=== PATIENT | female | born 1985 | race Caucasian/White ===

== ENCOUNTER 2024-11-04 21:14 | Emergency (ER) | payer OTHER, SELFPAY ==
[2024-11-04 21:21] VITALS: BP 99/70
[2024-11-04 21:45] LABS: Urine Albumin Negative (Neg - Trace); Urine Bilirubin Negative (Negative); Urine Character Clear (Clear); Urine Glucose Negative (Negative); Urine Ketone Negative (Negative); Urine Leukocyte Negative (Negative); Urine Nitrite Negative (Negative); Urine Occult Blood 1+ (Negative); Urine Urobilinogen Negative (Neg - 1+)
[2024-11-04 21:46] LABS: % Eosinophils 2.1 % (0-6); % Immature Granulocytes 0.4 % (0-0.5); % Lymphocytes 37.8 % (20.5-51.1); % Monocytes 12.4 % (1.7-9.3); % Neutrophils 46.3 % (42.2-75.2); Absolute Basophils 0.1 10^3/uL (0-0.2); Absolute Eosinophils 0.1 10^3/uL (0-0.7); Absolute Monocytes 0.6 10^3/uL (0.1-0.6); Absolute Neutrophils 2.4 10^3/uL (1.4-6.5); Hematocrit 37.3 % (37.0-47.0); Hemoglobin 12.6 g/dL (12.0-16.0); Mean Corp Hgb Conc. 33.8 g/dL (33.0-37.0); Mean Corpuscular Hgb 30.4 pg (27.0-31.0); Mean Corpuscular Volume 90.1 fL (81.0-99.0); Mean Platelet Volume 8.1 fL (7.4-10.4); Nucleated Red Blood Cells % 0 %; Platelet Count 323 10^3/uL (130-400); Red Blood Cell Count 4.14 10^6/uL (4.20-5.40); Red Cell Dist. Width 12.2 % (11.5-14.5); Urine Color Straw; White Blood Cell Count 5.2 10^3/uL (4.8-10.8)
[2024-11-04 21:56] LABS: HCG, Serum Qualitative Screen Negative
[2024-11-04 22:00] LABS: ALT (SGPT) 70 U/L (0-35); AST (SGOT) 41 U/L (14-36); Albumin 4.8 g/dl (3.5-5.0); Alkaline Phosphatase 77 U/L (38-126); Blood Urea Nitrogen 5 mg/dl (7-17); Calcium 9.4 mg/dl (8.4-10.2); Carbon Dioxide 28 mmol/L (22-30); Chloride 103 mmol/L (98-107); Glucose 90 mg/dl (70-99); Potassium 4.3 mmol/L (3.5-5.1); Sodium 137 mmol/L (135-145); Total Bilirubin 0.3 mg/dl (0.2-1.3); Total Protein 7.3 g/dl (6.3-8.2); eGFR > 60.00
[2024-11-04 23:07] LABS: Urine Red Blood Cell 0-2 /HPF (0-2); Urine Squamous Cell 21-25 /LPF (Few); Urine White Cell 0-2 /HPF (0-5)
[2024-11-05 01:03] VITALS: BP 110/70
--- NOTE | 2024-11-05 03:16 | ED.GENMED ---
History of Present Illness
General
Chief Complaint: Urinary Symptoms
Source: patient
Exam Limitations: none
Time Seen by Provider: 11/05/24 03:14
Nursing documentation reviewed up to this point in time: agreed with
History of Present Illness
History of Present Illness:
This is a 39-year-old female with no past medical history who presents emergency department today with concerns of increased urinary frequency for the past 3 weeks. Patient reports that when she first started, she did not increase her water intake
and noticed that despite this, she would frequently run to the bathroom. Patient reports that she felt as if she had trouble emptying her bladder at times and would state that her bladder will become very full and this would cause her pain.
Patient states that she feels like she is holding urine for a longer time that is abnormal for her. She was seen by her primary care provider who performed a urinalysis which did not show any signs concerning for infection. She was started on
Macrobid however the culture came back negative and she subsequently stopped taking this. She denies any dysuria. Denies any hematuria. Denies any fevers or chills, abdominal pain. She only notes pain in the pelvis only when there is urine in
her bladder. She has not seen a urologist for this problem. Her last menstrual period ended 2 days ago. She is also concerned because she has a new sexual partner and states that she is concerned that he may have given her bacteria. She denies
any vaginal discharge. She did have testing done last week for GC chlamydia which was negative.
Past History
Past History
ED Past Medical History: None
ED Past Surgical History: None
Social History
Tobacco: Non-smoker
Alcohol: None
Review of Systems
Review of Systems
All Other Systems: ROS reviewed and negative except as documented in HPI and ROS
Phy Exam
Physical Exam
Physical Exam:
General: Patient is well appearing and in no acute distress; non-toxic
Skin: Warm and dry, no rashes or lesions
Head: Normocephalic, atraumatic
Eyes: Sclera non-icteric. EOMs intact.
Cardiac: Regular rate and rhythm, no murmurs
Peripheral Vascular: No lower extremity swelling or edema
Pulm: Normal respiratory effort, no wheezes, rales, or rhonchi
Abdomen: No abdominal tenderness to palpation, no palpable abdominal masses, no adenexal tenderness
Neuro: CN II-XII intact, no focal neurologic deficits.
Psychiatric: Appropriate mood and affect.
Course
Orders/Labs/Results
Orders:
Orders
11/04/24 21:25
Test Result ONCE
11/04/24 21:35
Complete Blood Count/With Diff Urgent
Comprehensive Metabolic Panel Urgent
HCG, Serum Qualitative Screen Urgent
Urinalysis Reflex To Culture Urgent
Date Specimen was Collected: 11/04/24
Time Specimen was Collected: 21:25
Urine Microscopic Reflex Cult Urgent
11/05/24 03:15
Bladder Scan- Treatment ONCE
11/05/24 03:52
US Pelvis W Transvag Combined Urgent
Comment:
Reason For Exam: pelvic pain
Abnormal Lab Results
11/04/24
21:35
RBC 4.14 L 10^6/uL
(4.20-5.40)
Monocytes % 12.4 H %
(1.7-9.3)
BUN 5 L mg/dl
(7-17)
AST 41 H U/L
(14-36)
ALT 70 H U/L
(0-35)
Ur Occult Blood Reflex 1+ A
(Negative)
11/04/24 21:35
11/04/24 21:35
Vital Signs
Initial and Last Documented VS:
Initial Vital Signs
Temp Pulse Resp BP Pulse Ox
97.8 F 70 16 99/70 98
11/04/24 21:21 11/04/24 21:21 11/04/24 21:21 11/04/24 21:21 11/04/24 21:21
Last Documented Vital Signs
Temp Pulse Resp BP Pulse Ox
97.8 F 66 18 111/72 99
11/04/24 21:21 11/05/24 06:18 11/05/24 06:18 11/05/24 06:18 11/05/24 06:18
MDM/Problems Addressed
Differential Diagnosis Includes:
ddx include UTI, STD, ovarian cyst, interstitial cystitis, overactive bladder, caffeine intake, kidney disease, diabetes, anxiety
MDM/Problems Addressed:
This is a 39-year-old female with no past medical history who presents emergency department today with concerns of increased urinary frequency for the past 3 weeks. Patient reports that when she first started, she did not increase her water intake
and noticed that despite this, she would frequently run to the bathroom. She has never had anything like this before. She saw her primary care provider who did urinalysis testing which was negative. Had negative GC/chlamydia. No evidence of urinary
retention on bladder scan. Patient pain free after she emptied her bladder. Patient had benign abdominal exam. She is very concerned she could have something wrong with her ovaries despite being asymptomatic at this time. We did obtain an US which
was positive for an ovarian cyst. No concern for intermittent torsion at this time. Explained to patient that this is unlikely to cause urinary frequency. Recommended follow up with urology and patient's OBGYN. Patient requesting a referral for a
new OBGYN. Referral provided. Patient stable for discharge.
*Critical Care Note
Total Time (30-74mins, 75-104mins- exclusive of procedures): Not Applicable
ED Attending Note
-
Portions of this chart may have been created with voice recognition software.� Occasional wrong word or��sound alike� substitutions may have occurred due to the inherent limitations of voice recognition software.
Discharge Plan
Departure
Patient Disposition: Home (Routine Discharge)
Date of Disposition: 11/05/24
Time of Disposition: 06:15
Patient with high blood pressure during this ER visit?: Yes
Condition: Good
Discharge Problem:
Ovarian cyst, Urinary frequency
Instructions: Pelvic pain - ED discharge instructions, BLOOD PRESSURE
Prescriptions:
No Action
diclofenac potassium 50 mg tablet
50 mg PO BID Qty: 20 0RF
methylprednisolone [Medrol (Leonard)] 4 mg tablets,dose pack
See Rx Instructions .ROUTE .COMPLEX Qty: 21 0RF
Rx Instructions:
orally per package directions
Referrals:
Harsh Taylor MD [Active] - Call in 1-3 days for appt
Gina Winchester MD [Active] - Call in 1-3 days for appt
Selene Funez PA-C [Family Provider] -
Activity Restrictions/Additional Instructions:
Your ultrasound demonstrated normal flow to both ovaries. Your ultrasound showed ovarian cyst which may be responsible for your pain but should not cause urinary frequency. Please follow-up with your MENTAL MEASUREMENTS TEACHER. We also provided you a referral for a
urologist.
PLEASE RETURN EMERGENCY DEPARTMENT TO DEVELOP FEVERS OR CHILLS, VAGINAL BLEEDING, VAGINAL DISCHARGE, INCREASING PAIN, CHEST PAIN OR SHORTNESS OF BREATH, DIZZINESS, LIGHTHEADEDNESS, OR ANY OTHER SIGNS OR SYMPTOMS WORRISOME TO YOU.
Interventions
Interventions:
*Risk Screen - Suicide Last Done: 11/05/24 03:21
*General Assessment Last Done: 11/05/24 03:21
*Neglect/Abuse Screening Last Done: 11/05/24 03:21
*ED- Fall Risk Assessment Last Done: 11/05/24 03:21
*ED COVID-19 Vaccine History Last Done: 11/05/24 03:21
*Nursing Disposition Last Done: 11/05/24 06:19
ED-Female Genitourinary Assessment Last Done: 11/05/24 03:21
Discharge Date and Time
Discharge Date/Time: 11/05/24 06:30
Print Language: BENGALI
[2024-11-05 03:38] VITALS: BP 96/64
[2024-11-05 04:00] VITALS: BP 97/68
[2024-11-05 06:18] VITALS: BP 111/72
== END 2024-11-05 06:30 | disposition home or self-care (01) ==
LOC: EMR 21:14
PROVIDERS: Student in an Organized Health Care Education/Training Program; EMERGENCY PHYSICIAN Emergency Medicine; FAMILY PHYSICIAN Physician Assistant Medical
DX: N83.201 Unspecified ovarian cyst, right side (principal); R35.0 Frequency of micturition
CPT/HCPCS: 99284; 76830; 76856; 80053; 81003; 81015; 84703; 85025

== ENCOUNTER 2024-11-08 06:23 | Emergency (ER) | payer OTHER, SELFPAY ==
[2024-11-08 06:25] VITALS: BP 128/75
--- NOTE | 2024-11-08 06:48 | ED.GENMED ---
Addendum entered and electronically signed by Michael Bojorquez PA-C 11/10/24 06:14:
Urine culture shows greater than 100,000 colony-forming units of gram-negative bacilli. Currently on antibiotics. Sensitivities pending
Original Note:
History of Present Illness
General
Chief Complaint: Urinary Symptoms
Source: patient and records
Exam Limitations: none
Time Seen by Provider: 11/08/24 06:36
Nursing documentation reviewed up to this point in time: agreed with
History of Present Illness
History of Present Illness:
39-year-old female with no reported chronic medical issues who presents to the emergency room for evaluation of abdominal pain. Patient reports onset of symptoms about a month ago and they have been generally worsening. She reports suprapubic pain
which does not radiate. No clear triggering or relieving factors noted. She denies any associated nausea, vomiting, diarrhea. She has had urinary symptoms�describes dysuria and increased frequency. She was seen in this emergency room 11/05/2024
with urinary symptoms and pain�at that time she was found to have an ovarian cyst on pelvic ultrasound. Her urinalysis was bland and she was recommended to follow-up with urology and MANAGER PART in regards to her urinary frequency. She says that she
saw a urologist and was told to take Azo. She says that she took it last night and began to have whole body aches, worsening suprapubic pain, severe dysuria and 'I started peeing blood.' She came to the emergency room for evaluation. Only
surgical history is prior . She says she is scheduled for an outpatient CT scan next week that was ordered by the urologist.
Past History
Past History
ED Past Medical History: None
ED Past Surgical History: None
Social History
Tobacco: Non-smoker
Alcohol: None
Review of Systems
Review of Systems
All Other Systems: ROS reviewed and negative except as documented in HPI and ROS
Constitutional: Denies fever or chills
Respiratory: Denies trouble breathing
Cardiac: Denies chest pain
ABD/GI: Reports abdominal pain; Denies nausea, vomiting or diarrhea
: Reports dysuria, frequency and bleeding; Denies flank pain
Musculoskeletal: Denies neck pain or back pain
Neurological: Denies headache
Phy Exam
Physical Exam
Physical Exam:
General: Awake, alert, crying and very anxious appearing
Head: Normocephalic, atraumatic
Eyes: Conjunctiva normal
Throat: Airway intact, handling secretions
Neck: Trachea midline, supple without meningismus
Lungs: Clear to auscultation bilaterally, no wheezing, rales, rhonchi
Heart: Tachycardia with regular rhythm, no murmurs, gallops, or rubs
Abd: Soft, non distended, mild suprapubic tenderness
: (Exam performed with female missile and missile checkout technician in room as epic willow analyst)--normal external genitalia, small amount of white discharge in the vaginal vault, normal-appearing cervix, no cervical motion tenderness
Back: No CVA tenderness
Neuro: No gross deficits
Skin: no rash in area of concern
Extremities: Warm and well-perfused
Scores
Heart Failure Risk
Heart Failure Risk Score: Not Applicable
Heart Score for Chest Pain Patients
STEMI patient?: Not applicable
Withdrawal Assessment of Alcohol
Withdrawal Assessment Completed?: Not applicable
Course
Orders/Labs/Results
Orders:
Orders
11/08/24 06:36
Test Result ONCE
11/08/24 06:40
HCG, Urine Qualitative Screen Urgent
Date Specimen was Collected: 11/08/24
Time Specimen was Collected: 06:38
Urinalysis Reflex To Culture Urgent
Date Specimen was Collected: 11/08/24
Time Specimen was Collected: 06:38
Urine Microscopic Reflex Cult Urgent
Urine Culture Urgent
SUMMER Source: U
Specimen Description:
Date Specimen was Collected: 11/08/24
Time Specimen was Collected: 06:38
11/08/24 06:46
Iohexol [Omnipaque] See Protocol PO NOW STA
11/08/24 06:47
CT Abd/pel (oral only)-DH Only Urgent
Comment:
Reason For Exam: suprapubic tenderness
Test Result ONCE
11/08/24 06:52
Ketorolac [Toradol] 15 mg IV NOW STA
Lorazepam [Ativan] 0.5 mg IV NOW STA
11/08/24 07:03
Complete Blood Count/With Diff Urgent
Comprehensive Metabolic Panel Urgent
HCG, Serum Qualitative Screen Urgent
11/08/24 09:10
CefTRIAXone [Rocephin] 1,000 mg IV NOW STA
Abnormal Lab Results
11/08/24 11/08/24
06:40 07:03
RBC 4.11 L 10^6/uL
(4.20-5.40)
Hct 36.9 L %
(37.0-47.0)
Abs Immat Gran (auto) 0.1 H 10^3/uL
(0-0.05)
Absolute Neuts (auto) 7.1 H 10^3/uL
(1.4-6.5)
Absolute Lymphs (auto) 1.0 L 10^3/uL
(1.2-3.4)
Absolute Monos (auto) 0.7 H 10^3/uL
(0.1-0.6)
Immature Gran % 0.6 H %
(0-0.5)
Neutrophils % 79.4 H %
(42.2-75.2)
Lymphocytes % 11.7 L %
(20.5-51.1)
BUN 3 L mg/dl
(7-17)
Glucose 105 H mg/dl
(70-99)
ALT 56 H U/L
(0-35)
Urine Ketones 1+ A
(Negative)
Ur Occult Blood Reflex 4+ A
(Negative)
Urine Nitrite (Reflex) Positive A
(Negative)
Leukocyte Esterase Rfl 3+ A
(Negative)
Urine RBC 90-100 A /HPF
(0-2)
Urine WBC (Reflex) 70-80 A /HPF
(0-5)
Urine Bacteria (Reflex) Moderate A
(Negative)
Urine Albumin (Reflex) 4+ A
(Neg - Trace)
11/08/24 07:03
11/08/24 07:03
Vital Signs
Initial and Last Documented VS:
Initial Vital Signs
Temp Pulse Resp BP Pulse Ox
36.7 C 103 20 128/75 100
11/08/24 06:25 11/08/24 06:25 11/08/24 06:25 11/08/24 06:25 11/08/24 06:25
Last Documented Vital Signs
Temp Pulse Resp BP Pulse Ox
36.7 C 68 18 97/62 100
11/08/24 06:25 11/08/24 08:27 11/08/24 08:27 11/08/24 08:27 11/08/24 08:27
MDM/Problems Addressed
Differential Diagnosis Includes:
Urinary tract infection, kidney stone, diverticulitis, appendicitis, interstitial cystitis, PID
MDM/Problems Addressed:
39-year-old female presents to the emergency room for evaluation of continued suprapubic pain, urinary symptoms and today having chills and change in the color of her urine after taking Azo�patient concerned for hematuria. Vitals and exam as
above�she is extremely anxious and tearful about her symptoms. Will plan to place an IV send labs including a CBC and a CMP, hCG. Will check urinalysis to evaluate for hematuria although I suspect the change in urinary color is likely from Azo.
Will check CT of the abdomen pelvis. Treat pain and provide some Ativan to facilitate testing. Will monitor closely reassess after the above.
Labs reviewed: CBC shows predominant neutrophils, CMP no clinically significant abnormalities. Her hCG is negative. Her urinalysis is positive for infection with nitrites, blood, pyuria and bacteria. Urine culture sent. CT shows signs consistent
with cystitis, ovarian cyst no other acute abnormalities. She is constipated. She feels better after treatment here. She did request STD testing which we sent. She did have some discharge on exam, treat empirically. Will treat with IV ceftriaxone
discharge on p.o. cefdinir and doxycycline. Follow-up with primary care physician.
*Radiology
Radiology exam reviewed: radiology read reviewed
*Pulse Oximetry
Patient hypoxic: no
*Critical Care Note
Total Time (30-74mins, 75-104mins- exclusive of procedures): Not Applicable
Data Reviewed
Review of Other/Old Records Reveals: Labs and Records
Source: patient and records
ED Attending Note
-
Portions of this chart may have been created with voice recognition software.� Occasional wrong word or��sound alike� substitutions may have occurred due to the inherent limitations of voice recognition software.
Discharge Plan
Departure
Patient Disposition: Home (Routine Discharge)
Date of Disposition: 11/08/24
Time of Disposition: 09:55
Patient with high blood pressure during this ER visit?: No
Discharge Problem:
UTI (urinary tract infection), Hematuria
Instructions: Urinary Tract Infection, Adult (DC)
Prescriptions:
New
cefdinir 300 mg capsule
300 mg PO BID Qty: 14 0RF
doxycycline monohydrate 100 mg capsule
100 mg PO BID Qty: 14 0RF
No Action
diclofenac potassium 50 mg tablet
50 mg PO BID Qty: 20 0RF
methylprednisolone [Medrol (Leonard)] 4 mg tablets,dose pack
See Rx Instructions .ROUTE .COMPLEX Qty: 21 0RF
Rx Instructions:
orally per package directions
Referrals:
Selene Funez PA-C [Family Provider] - Follow up in 5-7 days
Activity Restrictions/Additional Instructions:
Thank you for visiting the Emergency Department at [facility].
1. Please schedule a follow up appointment as directed. Call first thing tomorrow morning to make an appointment.
2. If indicated, please take your medications as instructed and indicated on discharge paperwork.
3. If any of your symptoms do not improve, or persist, or become more severe within 6-12 hours, please return to the emergency department for further care.
4. Please return to the emergency department if you develop a headache, neck pain/stiffness, fever greater than 100.4F, chest pain, shortness of breath, persistent nausea, vomiting, slurred speech, difficulty walking, numbness/tingling, weakness,
signs of infection or any other symptoms that are worrisome to you.
Please call [phone] if you have any questions.
Interventions
Interventions:
*Risk Screen - Suicide Last Done: 11/08/24 06:25
*General Assessment Last Done: 11/08/24 07:23
*Neglect/Abuse Screening Last Done: 11/08/24 07:23
ED-Female Genitourinary Assessment Last Done: 11/08/24 07:23
Discharge Date and Time
Print Language: GUINEAN
[2024-11-08 06:53] LABS: Urine Albumin 4+ (Neg - Trace); Urine Bilirubin Negative (Negative); Urine Character Cloudy (Clear); Urine Color Brown; Urine Glucose Negative (Negative); Urine Ketone 1+ (Negative); Urine Leukocyte 3+ (Negative); Urine Nitrite Positive (Negative); Urine Occult Blood 4+ (Negative); Urine Urobilinogen 1+ (Neg - 1+)
[2024-11-08] MEDS: OMNIPAQUE 50 ML PO (07:02)
[2024-11-08] MEDS: TORADOL 15 MG IV (07:02)
[2024-11-08] MEDS: ATIVAN 0.5 MG IV (07:02)
[2024-11-08 07:05] LABS: HCG, Urine Qualitative Screen Negative
[2024-11-08 07:16] LABS: % Basophils 0.4 % (0-2); % Eosinophils 0.4 % (0-6); % Immature Granulocytes 0.6 % (0-0.5); % Lymphocytes 11.7 % (20.5-51.1); % Monocytes 7.5 % (1.7-9.3); % Neutrophils 79.4 % (42.2-75.2); Absolute Immature Granulocytes 0.1 10^3/uL (0-0.05); Absolute Monocytes 0.7 10^3/uL (0.1-0.6); Absolute Neutrophils 7.1 10^3/uL (1.4-6.5); Hematocrit 36.9 % (37.0-47.0); Hemoglobin 12.3 g/dL (12.0-16.0); Mean Corp Hgb Conc. 33.3 g/dL (33.0-37.0); Mean Corpuscular Hgb 29.9 pg (27.0-31.0); Mean Corpuscular Volume 89.8 fL (81.0-99.0); Mean Platelet Volume 8.1 fL (7.4-10.4); Nucleated Red Blood Cells % 0 %; Platelet Count 323 10^3/uL (130-400); Red Blood Cell Count 4.11 10^6/uL (4.20-5.40); Red Cell Dist. Width 12.2 % (11.5-14.5); White Blood Cell Count 8.9 10^3/uL (4.8-10.8)
[2024-11-08 07:23] VITALS: BMI 20.7
[2024-11-08 07:29] LABS: ALT (SGPT) 56 U/L (0-35); AST (SGOT) 33 U/L (14-36); Albumin 4.6 g/dl (3.5-5.0); Alkaline Phosphatase 59 U/L (38-126); Blood Urea Nitrogen 3 mg/dl (7-17); Calcium 9.4 mg/dl (8.4-10.2); Carbon Dioxide 27 mmol/L (22-30); Chloride 103 mmol/L (98-107); Estimated Creatinine Clearance 90 ml/min; Glucose 105 mg/dl (70-99); Potassium 4.2 mmol/L (3.5-5.1); Sodium 138 mmol/L (135-145); Total Bilirubin 0.5 mg/dl (0.2-1.3); Total Protein 7.1 g/dl (6.3-8.2); eGFR > 60.00
[2024-11-08 07:29] LABS: Urine Bacteria Moderate (Negative); Urine Red Blood Cell 90-100 /HPF (0-2); Urine White Cell 70-80 /HPF (0-5)
[2024-11-08 07:34] LABS: HCG, Serum Qualitative Screen Negative
[2024-11-08 08:27] VITALS: BP 97/62
[2024-11-08] MEDS: ROCEPHIN 1000 MG IV (09:43)
[2024-11-08] MEDS: VIBRAMYCIN 100 MG PO (10:20)
== END 2024-11-08 10:58 | disposition home or self-care (01) ==
LOC: EMR 06:23
PROVIDERS: EMERGENCY PHYSICIAN Emergency Medicine; FAMILY PHYSICIAN Physician Assistant Medical
DX: N39.0 Urinary tract infection, site not specified (principal); R31.9 Hematuria, unspecified
CPT/HCPCS: 99285; 96374; 96375 ×2; 74176; 80053; 81003; 81015; 81025; 84703; 85025; 87077; 87086; 87186; 87210; 87491; 87591

== ENCOUNTER → 2025-03-25 16:20 | Outpatient (REF) | payer OTHER, SELFPAY | LOC: RAD 16:20 | PROVIDERS: ATTENDING PHYSICIAN Obstetrics & Gynecology; FAMILY PHYSICIAN Physician Assistant Medical | DX: N83.201 Unspecified ovarian cyst, right side (principal) | CPT/HCPCS: 76830; 76856 ==